=== PATIENT | male | born 1985 | race Caucasian/White ===

== ENCOUNTER 2024-05-21 05:39 | Emergency (ER) | payer BC ==
[~2024-05-21] VITALS: Ht 190.5 cm; Wt 101.6 kg
[2024-05-21] MEDS ORDERED: AMP/SULBACTAM SOD 3 GM VIAL IV ONE (05:47)
[2024-05-21] MEDS ORDERED: LACTATED RINGER'S 1,000 ML IV ONE (06:00)
[2024-05-21] MEDS ORDERED: DEXAMETHASONE SOD PHOS 10 MG/ML VIAL IV ONE (06:00)
[2024-05-21] MEDS ORDERED: AMP/SULBACTAM SOD 3 GM in SODIUM CHLORIDE 0.9% 100 ML IV ONE (06:00)
[2024-05-21 06:06] LABS: BASOPHILS 0.8 % (0-2); EOSINOPHILS 0.4 % (0-6); HEMATOCRIT 47.3 % (35.0-50.0); HEMOGLOBIN 16.4 g/dL (12.0-18.0); LYMPHOCYTES 26.9 % (24-44); MCH 31.4 (27-36); MCHC 34.6 g/dl (30-36); MCV 90.8 fl (81-99); MONOCYTES 11.7 % (0-12); NEUTROPHILS 60.2 % (39-80); PLATELET COUNT 240 K/uL (140-440); RBC 5.21 M/ul (4.3-5.7)
[2024-05-21 06:35] LABS: ALBUMIN 4.2 g/dL (3.4-5.0); ALBUMIN/GLOBULIN RATIO 1.08 (1.1-2.4); ANION GAP 14.1 (7-21); BILIRUBIN, TOTAL 0.8 ng/dL (0.2-1.0); BUN/CREATININE RATIO 15.31 (6.0-28.6); CALCIUM 9.3 mg/dL (8.5-10.1); CREATININE, SERUM 1.11 mg/dL (0.70-1.30); POTASSIUM 4.1 mmol/L (3.5-5.1); PROTEIN, TOTAL 8.1 g/dL (6.4-8.2)
[2024-05-21] MEDS ORDERED: AMOX TR-K CLV1 EAC1 PO (07:14)
[2024-05-21] MEDS ORDERED: HYDROCODON-ACE1 EA10 PO (07:14)
[2024-05-21] MEDS ORDERED: HYDROCODONE BIT/ACETAMINOPHEN 5/325 MG 1 TAB HOME.PACK PO ONE (07:15)
[2024-05-21] MEDS ORDERED: methylPREDNISolone 4 MG HOME.PACK PO ONE (07:15)
[2024-05-21] MEDS ORDERED: AMOXICILLIN/CLAVULANATE K 875 MG HOME.PACK PO ONE (07:15)
[2024-05-21 07:40] VITALS: BP 138/87
== END 2024-05-21 07:35 | disposition home or self-care (01) ==
LOC: ED 05:39
PROVIDERS: Family Medicine
DX: J36 Peritonsillar abscess (principal); Z88.8 Allergy status to other drugs, medicaments and biological substances
CPT/HCPCS: 36415; 70491; 80053; 83605; 85025; 87651; 99284-25; A9270; J0295; J1100; J7121; Q9967